=== PATIENT | male | born 1955 | race Caucasian/White ===

== ENCOUNTER → 2018-06-09 | Emergency (ER) | payer BC ==
[~2018-06-09] VITALS: Ht 182.9 cm; Wt 97.7 kg
[~2018-06-09] MED LIST: TETanus/Pertussis (Acell)/Diphther VAC/PF (Tdap-Adult) 0.5ml syringe IMVAC ONE
[2018-06-09 14:42] VITALS: BP 145/96
== END | disposition home or self-care (01) ==
LOC: ER 14:40
DX: S61.210A Laceration without foreign body of right index finger without damage to nail, initial encounter (principal); W26.8XXA Contact with other sharp object(s), not elsewhere classified, initial encounter; Y93.89 Activity, other specified; Y92.89 Other specified places as the place of occurrence of the external cause; Y99.8 Other external cause status
CPT/HCPCS: 12001; 90471; 90715; 99283